=== PATIENT | male | born 1940 | race Caucasian/White ===

== ENCOUNTER 2017-03-25 09:48 | Day surgery (SDC) | payer MEDICARE, OTHER ==
[~2017-03-25] VITALS: Ht 188 cm; Wt 102.0 kg
--- NOTE | ~2017-03-25 | EGD ---
EGD REPORT [facility] [address] [address] NAME: ERNA HANNA : [birth year] STATUS : [place] [facility] [place]#: [id number] AGE: 76 ADM/REG DATE : 03/25/17 MR#: [id number] REPORT SERV DATE: 03/25/17 DICTATED BY: NICK CORNEJO III DATE: 03/25/17 REPORT STATUS : Draft TRANSCRIBED BY: [facility] DATE: 03/25/17 [facility] Patient Name: Erna Hanna Date of : 1940 Attending MD: NICK CORNEJO III, MD Procedure Date No Time: 03/25/2017 Procedure: Colonoscopy Indications: High risk colon cancer surveillance: Personal history of colonic polyps Referring MD: JAN GAYTAN Medicines: Propofol per Anesthesia Complications: No immediate complications. Procedure: After I obtained informed consent, the scope was passed under direct vision. Throughout the procedure, the patient's blood pressure, pulse, and oxygen saturations were monitored continuously. The PCF [id number] was introduced through the anus and advanced to the cecum, identified by appendiceal orifice and ileocecal valve. The colonoscopy was performed with ease. The patient tolerated the procedure well. The quality of the bowel preparation was good. Findings: Multiple diverticula were found in the sigmoid colon. Two sessile polyps were found in the descending colon. The polyps were 4 to 6 mm in size. These polyps were removed with a cold snare. Resection and retrieval were complete. These polyps were removed with a cold biopsy forceps. Resection and retrieval were complete. A sessile polyp was found in the rectum. The polyp was 6 mm in size. The polyp was removed with a cold snare. Resection and retrieval were complete. A sessile polyp was found in the transverse colon. The polyp was 6 mm in size. The polyp was removed with a cold snare. Resection and retrieval were complete. Impression: - Diverticulosis in the sigmoid colon. - Two 4 to 6 mm polyps in the transverse colon. Resected and retrieved. - One 6 mm polyp in the rectum. Resected and retrieved. - One 6 mm polyp in the descending colon. Resected and retrieved. Recommendation: - Patient has a contact number available for emergencies. The signs and symptoms of potential delayed complications were discussed with the patient. Return to EGD REPORT [address] [address] NAME: ERNA HANNA : [birth year] STATUS : REG [facility]#: [id number] AGE: 76 ADM/REG DATE : 03/25/17 MR#: [id number] REPORT SERV DATE: 03/25/17 DICTATED BY: NICK CORNEJO III DATE: 03/25/17 REPORT STATUS : Draft TRANSCRIBED BY: [facility] DATE: 03/25/17 normal activities tomorrow. Written discharge instructions were provided to the patient. - Discharge patient to home. - High fiber diet indefinitely. - Continue present medications. - Await pathology results. - Repeat colonoscopy after studies are complete for surveillance based on pathology results. Procedure Code(s): --- Professional --- 34167, Colonoscopy, flexible, proximal to splenic flexure; with removal of tumor(s), polyp(s), or other lesion(s) by snare technique Diagnosis Code(s): --- Professional --- K57.30, Diverticulosis of large intestine without perforation or abscess without bleeding D12.4, Benign neoplasm of descending colon K62.1, Rectal polyp D12.3, Benign neoplasm of transverse colon Z86.010, Personal history of colonic polyps CPT copyright 2013 [employer]. All rights reserved. The codes documented in this report are preliminary and upon sheet rock installation helper review may be revised to meet current compliance requirements. NICK CORNEJO III, MD 03/25/2017 12:24 PM This report has been signed electronically. Number of Addenda: 0 Note Initiated On: 03/25/2017 11:59 AM Scope Withdrawal Time 0 hours 9 minutes 17 seconds [id number] [place] [id number]
[~2017-03-25 09:48] MED LIST: CALTRA600D PO; CELEXA10 PO; CELEXA20 PO; FISH-EPA1000 MG PO; GLUCCHONDR PO; LIPITOR10 PO; METAMUCIL CAN7 OZ PO; MUCINEX DM1 TA1 OR; MUCINEX DM1 TAB OR; MUCINEX600 MG PO; MUCUSRELIEF PO; MULTIPLE VIT PO; PRILO PO; PRIN10 PO; SUPER BETA PROSTATE PO; ZYRTEC ALLGY10 MG PO
== END 2017-03-25 23:59 | disposition home or self-care (01) ==
LOC: DMU 09:48
PROVIDERS: Internal Medicine Gastroenterology
PROC: 0DBP8ZZ Excision of Rectum, Via Natural or Artificial Opening Endoscopic (ICD-10-PCS; 2017-03-25)
PROC: 0DBM8ZZ Excision of Descending Colon, Via Natural or Artificial Opening Endoscopic (ICD-10-PCS; principal; 2017-03-25 10:30)
PROC: 0DBL8ZZ Excision of Transverse Colon, Via Natural or Artificial Opening Endoscopic (ICD-10-PCS; 2017-03-25 10:30)
DX: Z12.11 Encounter for screening for malignant neoplasm of colon (principal); D12.4 Benign neoplasm of descending colon; D12.3 Benign neoplasm of transverse colon; D12.8 Benign neoplasm of rectum; K57.30 Diverticulosis of large intestine without perforation or abscess without bleeding; K21.9 Gastro-esophageal reflux disease without esophagitis; E78.00 Pure hypercholesterolemia, unspecified; G47.33 Obstructive sleep apnea (adult) (pediatric); N40.0 Benign prostatic hyperplasia without lower urinary tract symptoms; N20.0 Calculus of kidney; F32.9 Major depressive disorder, single episode, unspecified; Z86.010 Personal history of colon polyps; Z99.89 Dependence on other enabling machines and devices; Z90.89 Acquired absence of other organs; Z90.49 Acquired absence of other specified parts of digestive tract; Z79.899 Other long term (current) drug therapy; Z98.890 Other specified postprocedural states
CPT/HCPCS: 88305